=== PATIENT | female | born 1985 | race Asian ===

== ENCOUNTER 2016-09-12 18:46 | Emergency (ER) | payer OTHER ==
[~2016-09-12] VITALS: Ht 160 cm; Wt 71.1 kg
[2016-09-12 18:49] VITALS: TEMP 98.4
[2016-09-12] MEDS ORDERED: PRENATAL PO (18:56)
[2016-09-12 19:32] LABS: BASO % 0.3 % (0.0-2.0); EOS # 0.2 (0.0-0.7); EOS % 2.3 % (0-4.0); GRAN # 4.2 (1.4-6.5); GRAN % 63.4 % (42.2-75.2); LYMPH # 1.9 (1.2-3.4); LYMPH % 28.7 % (20.0-51.0); MEAN CELL VOLUME 85 fl (80.0-100.0); MEAN CORPUSCULAR HGB CONC 31 g/dl (33.0-37.0); MONO # 0.3 (0.1-0.6); PLATELET COUNT 128 K/mm3 (130-400); RED BLOOD COUNT 3.73 M/mm3 (4.10-5.30); REDCELL DISTRIBUTION WIDTH-CV 13.5 % (11.5-14.5); WHITE BLOOD COUNT 6.6 K/mm3 (4.8-10.8)
[2016-09-12 19:35] LABS: HEMATOCRIT 31.7 % (37.0-47.0); HEMOGLOBIN 9.9 g/dl (12.5-16.0); MEAN CORPUSCULAR HEMOGLOBIN 27 pg (27.0-31.0)
[2016-09-12 19:36] LABS: PROTHROMBIN TIME 10.9 SECONDS (9.7-12.8)
[2016-09-12 20:20] VITALS: BP 108/64; PULSE 92
== END 2016-09-12 20:25 | disposition home or self-care (01) ==
LOC: COL.ER 18:46
PROVIDERS: Nurse Practitioner
DX: O26.893 Other specified pregnancy related conditions, third trimester (principal); R60.0 Localized edema; Z3A.34 34 weeks gestation of pregnancy; Z98.890 Other specified postprocedural states

== ENCOUNTER 2016-10-23 03:33 | Inpatient (IN) | payer OTHER ==
[2016-10-23] VITALS (18 sets, daily range): BP systolic 94–127; BP diastolic 55–80; PULSE 61–102; TEMP 97.8–98.1
[~2016-10-23] VITALS: Ht 160 cm; Wt 74.1 kg
[~2016-10-23 03:33] MED LIST: PRENATAL PO
[2016-10-23] MEDS ORDERED: FERROUSGLUC256MG (03:57)
[2016-10-23] MEDS ORDERED: VITAMIN C500 MG PO (03:58)
[2016-10-23 06:00] LABS: BASO % 0.6 % (0.0-2.0); EOS # 0.1 (0.0-0.7); EOS % 1.6 % (0-4.0); GRAN % 58.5 % (42.2-75.2); LYMPH # 2.1 (1.2-3.4); LYMPH % 31.4 % (20.0-51.0); MEAN CELL VOLUME 84 fl (80.0-100.0); MEAN CORPUSCULAR HEMOGLOBIN 26 pg (27.0-31.0); MEAN CORPUSCULAR HGB CONC 31 g/dl (33.0-37.0); MEAN PLATELET VOLUME 12.6 fl (7.4-10.4); MONO # 0.5 (0.1-0.6); MONO % 7.5 % (1.7-9.3); PLATELET COUNT 135 K/mm3 (130-400); WHITE BLOOD COUNT 6.8 K/mm3 (4.8-10.8)
[2016-10-23 06:04] LABS: HEMOGLOBIN 11.6 g/dl (12.5-16.0)
[2016-10-23] MEDS ORDERED: PERCOCET 325 MG1 TA2 PO (13:23)
[2016-10-23] MEDS ORDERED: IBU600 MG PO (13:23)
[2016-10-24 07:15] VITALS: BP 108/80; PULSE 82; TEMP 97.7
[2016-10-24 19:22] VITALS: BP 111/61; PULSE 95; TEMP 98.3
== END 2016-10-24 21:25 | disposition home or self-care (01) | DRG 775 ==
LOC: LDRO 03:33 → LDR 03:40 → OB 10:30
PROVIDERS: Obstetrics & Gynecology
PROC: 10E0XZZ Delivery of Products of Conception, External Approach (ICD-10-PCS; principal; 2016-10-23)
PROC: 0UQM0ZZ Repair Vulva, Open Approach (ICD-10-PCS; 2016-10-23)
DX: O48.0 Post-term pregnancy (principal); O99.02 Anemia complicating childbirth; D64.9 Anemia, unspecified; O70.0 First degree perineal laceration during delivery; O69.81X0 Labor and delivery complicated by cord around neck, without compression, not applicable or unspecified; Z3A.40 40 weeks gestation of pregnancy; Z37.0 Single live birth
CPT/HCPCS: J2590; J7120

== ENCOUNTER → 2018-04-10 | Day surgery (SDC) | payer OTHER ==
[~2018-04-10] MED LIST changes: +FERROUSGLUC256MG; +IBU600 MG PO; +PERCOCET 325 MG1 TA2 PO; +VITAMIN C500 MG PO
== END ==
LOC: SDCO 08:44
DX: K29.80 Duodenitis without bleeding (principal); R14.1 Gas pain
CPT/HCPCS: J2250; J2405; J3010; J7030

== ENCOUNTER → 2018-04-22 | Outpatient (CLI) | payer OTHER | LOC: COL.RAD 10:26 | DX: A04.8 Other specified bacterial intestinal infections (principal); K29.80 Duodenitis without bleeding ==

== ENCOUNTER → 2018-05-07 | Outpatient (CLI) | payer OTHER | LOC: COL.RAD 11:47 | DX: A04.8 Other specified bacterial intestinal infections (principal); K29.80 Duodenitis without bleeding | CPT/HCPCS: A9537 ==

== ENCOUNTER 2019-11-14 19:30 | Outpatient (CLI) | payer OTHER ==
[~2019-11-14] VITALS: Ht 162.6 cm; Wt 80.9 kg
--- NOTE | 2019-11-14 20:00 | NUR ---
Pt arrived on unit via wheelchair escorted by and ED staff. Pt reports complaints of back pain and lower abdominal "cramping" all day worsening this evening. Pt denies any leaking of fluid or vaginal bleeding and reports normal movement. EFM and toco monitors started. Vital signs WNL. SVE by this RN closed/thick/high. Encouraged PO intake of water as pt reports "I don't drink much water" Information reviewed with Dr. Hannah. Orders for UA received.
[2019-11-14 20:03] VITALS: BP 118/71; PULSE 93; TEMP 97.8
[2019-11-14 21:20] LABS: COLLECTION METHOD CLEAN CATCH
[2019-11-14 21:28] LABS: PH 6 (5-8); SQUAMOUS EPITHELIAL 0-2 /hpf; URINE APPEARANCE Clear; URINE BACTERIA Rare /hpf; URINE BILIRUBIN Negative (NEGATIVE); URINE BLOOD 1+ (NEGATIVE); URINE COLOR Straw; URINE GLUCOSE Negative (NEGATIVE); URINE KETONE Negative (NEGATIVE); URINE LEUKOCYTE ESTERASE Negative (NEGATIVE); URINE NITRATE Negative (NEGATIVE); URINE PROTEIN(semi-quant) Negative (NEGATIVE); URINE RBC 0-2 /hpf; URINE UROBILINOGEN Negative (NEGATIVE); URINE WBC 0-2 /hpf
--- NOTE | 2019-11-14 21:52 | NUR ---
UA results reviewed by Dr. Hannah while on the unit. FHR tracing reviewed. Orders for discharge home received. Plan of care for discharge home and instructions reviewed with pt and at the bedside. Both verbalized an understanding, agreed with the plan and state no questions or concerns at this time.
== END 2019-11-14 22:05 | disposition home or self-care (01) ==
LOC: LDRO 19:30 → COL.ER 19:30 → EDSTATUS 19:52 → LDR 21:57 → LDRO 22:05
PROVIDERS: Obstetrics & Gynecology
DX: O62.9 Abnormality of forces of labor, unspecified (principal); Z3A.29 29 weeks gestation of pregnancy
CPT/HCPCS: OP

== ENCOUNTER 2020-01-27 03:59 | Inpatient (IN) | payer OTHER ==
[2020-01-27] VITALS (29 sets, daily range): BP systolic 98–157; BP diastolic 54–94; PULSE 71–104; TEMP 97.9–98.8
[~2020-01-27] VITALS: Ht 160 cm; Wt 87.3 kg
--- NOTE | 2020-01-27 04:05 | NUR ---
G6L4 at 40 weeks and 2 days arrives to unit with complaint of leaking of fluid. Pt states she woke around 0320 to leaking fluid. Pt denies contractions, does report some blood tinged fluid. Reports good movement. Pt denies headaches, blurry vision or RUQ pain. Pt oriented to room, call light within reach, bed in low and locked position. Vital signs obtained. US and toco explained and applied. Admission assessment started. SVE 2/70/-3, grossly ruptured membranes
--- NOTE | 2020-01-27 05:20 | NUR ---
18G IV started in right hand, admission labs obtained off IV start. Lactated Ringers infusing to gravity. Consents reviewed and signed with patient and spouse.
[2020-01-27 06:37] LABS: BASO % 0.5 % (0.0-2.0); EOS # 0.2 (0.0-0.7); EOS % 2.3 % (0-4.0); GRAN % 55.6 % (42.2-75.2); HEMATOCRIT 38.1 % (37.0-47.0); LYMPH # 2.4 (1.2-3.4); MEAN CELL VOLUME 85 fl (80.0-100.0); MEAN CORPUSCULAR HEMOGLOBIN 27 pg (27.0-31.0); MEAN CORPUSCULAR HGB CONC 32 g/dl (33.0-37.0); MEAN PLATELET VOLUME 13.4 fl (7.4-10.4); MONO # 0.6 (0.1-0.6); MONO % 8.1 % (1.7-9.3); PLATELET COUNT 153 K/mm3 (130-400); RED BLOOD COUNT 4.48 M/mm3 (4.10-5.30); REDCELL DISTRIBUTION WIDTH-CV 15.3 % (11.5-14.5)
--- NOTE | 2020-01-27 07:15 | NUR ---
Roles at bedside to assess patient and FHR strip. SVE per physician 3-4/100/-2. Patient updated and plan of care discussed. Patient uncomfortable with contractions at this time. Denies anything for pain. 0910: Patient feeling more pain and pressure. SVE-8/100/[address] Hannah notified. 0920: Roles at bedside and SVE per physician-complete. Patient updated and prepped for vaginal delivery. 0924: Patient begins to push with contractions. 0926: Spontaneous vaginal delivery of viable male- head followed by body. Infant bulb syringed and to patients Murphy person RN assumes care of infant. Cord clamped and cut by physician. Cord blood obtained. 0929: Spontaneous delivery of placenta and pitocin bolus started at 333 mU/hr. Fundal massage done and moderate bleeding noted. Pericare done and patient repositioned. Perineum intact. Fundal massage done/firm/bleeding WNL. Plan of care discussed and questions answered.
[2020-01-28 01:00] VITALS: BP 101/65; PULSE 60; TEMP 98.8
[2020-01-28 08:10] VITALS: BP 107/63; PULSE 89; TEMP 97.8
--- NOTE | 2020-01-28 10:33 | NUR ---
Initial visit attempt; Patient out of room, Research Laboratory Manager left card of congratulations for the of her son and information regarding the availability of Spiritual Care at our hospital.
[2020-01-28] MEDS ORDERED: IBU600 MG PO (11:55)
== END 2020-01-28 17:10 | disposition home or self-care (01) | DRG 807 ==
LOC: LDRO 03:59 → LDR 04:36 → OB 10:58
PROVIDERS: ADMIT Obstetrics & Gynecology
PROC: 10E0XZZ Delivery of Products of Conception, External Approach (ICD-10-PCS; principal; 2020-01-27)
DX: O48.0 Post-term pregnancy (principal); Z37.0 Single live birth; O69.81X0 Labor and delivery complicated by cord around neck, without compression, not applicable or unspecified; Z3A.40 40 weeks gestation of pregnancy
CPT/HCPCS: J2590; J7120

== ENCOUNTER → 2020-06-01 | Outpatient (CLI) | payer OTHER | LOC: COL.RAD 07:11 | DX: G44.329 Chronic post-traumatic headache, not intractable (principal); R51.9 Headache, unspecified; R20.2 Paresthesia of skin | CPT/HCPCS: A9585 ==